=== PATIENT | male | born 1950 | race Caucasian/White ===

== ENCOUNTER 2018-01-31 22:22 | Outpatient (CLI) | payer MEDICARE, OTHER | END 2018-01-31 22:23 | disposition critical access hospital (66) | LOC: EMS 22:22 | PROVIDERS: ATTEND Surgery | DX: M54.5 Low back pain (principal) | CPT/HCPCS: A0425; A0429 ==

== ENCOUNTER 2018-01-31 22:58 | Observation (INO) | payer MEDICARE, OTHER ==
[2018-01-31] MEDS ORDERED: KETOROLAC 15 MG/ML VIAL IVP STA (23:08)
[2018-01-31] MEDS ORDERED: DEXAMETHASONE 10 MG/ML VIAL IVP STA (23:08)
--- NOTE | 2018-01-31 23:10 | ED Physician Documentation ---
PD HPI BACK PAIN - Stated complaint Stated Complaint: BACK PAIN - History obtained from History obtained from: Patient, Family, EMS - History of Present Illness Timing - onset: Chronic Timing - duration: Years (worse for past few weeks) Timing - details: Gradual onset Pain level max: 9 Pain level now: 9 Location: Lower Quality: Pain, Similar to prior episodes Associated symptoms: Weakness (RLE), Numbness (new numbness in the R foot, unable to walk on the R leg. using a wheelchair at home). No: Fever Improves with: Rest Worsened by: Movement Contributing factors: Other (no trauma) Similar symptoms before: Diagnosis (sciatica) [facility], getting worse, pain not controlled) Review of Systems Ten Systems: 10 systems reviewed and negative Constitutional: denies: Fever, Chills Cardiac: denies: Chest pain / pressure Respiratory: denies: Cough GI: denies: Abdominal Pain, Nausea, Vomiting, Diarrhea : denies: Dysuria, Frequency, Hesitancy, Incontinent Skin: denies: Rash PD PAST MEDICAL HISTORY - Past Medical History Cardiovascular: Hypertension Respiratory: None Endocrine/Autoimmune: None GI: GERD : None HEENT: None Psych: Anxiety Musculoskeletal: Chronic back pain Derm: None - Past Surgical History Past Surgical History: Yes - Present Medications Home Medications: Ambulatory Orders Medication Instructions Recorded Confirmed Naproxen [Aleve] 500 mg PO BIDAC 02/13/13 02/01/18 Lisinopril [Zestril] 10 mg PO DAILY 02/25/13 02/01/18 Alprazolam [Alprazolam Xr] 1 tab PO BID PRN 02/01/18 02/01/18 Carbidopa/Levodopa 1 tab PO QID 02/01/18 02/01/18 [Carbidopa-Levodopa 25-100 Tab] Oxycodone HCl 1 tab PO Q4HR PRN 02/01/18 02/01/18 - Allergies Allergies/Adverse Reactions: Allergies Allergy/AdvReac Type Severity Reaction Status Date / Time No Known Drug Allergies Allergy Verified 01/31/18 23:14 - Social History Does the pt smoke?: No Smoking Status: Never smoker Does the pt drink ETOH?: No Does the pt have substance abuse?: No - Immunizations Immunizations are current?: Yes - POLST Patient has POLST: No PD ED PE NORMAL - Vitals Vital signs reviewed: Yes - General General: Alert and oriented X 3, No acute distress - HEENT HEENT: Moist mucous membranes - Neck Neck: Supple, no meningeal sign - Cardiac Cardiac: RRR, Strong equal pulses - Respiratory Respiratory: No respiratory distress, Clear bilaterally - Abdomen Abdomen: Soft, Non tender, Non distended - Back Back: Other (TTP L4-5, upper sacrum.) - Derm Derm: Warm and dry - Extremities Extremities: No edema - Neuro Neuro: Alert and oriented X 3, Other (diminished sensation over the R foot and ankle. improves going up the leg. no response to babinski. 1+ ankle reflex, 1+ patellar reflex. Normal rectal tone. no saddle anesthesia.) Results - Vitals Vitals: Vital Signs - 24 hr 01/31/18 02/01/18 02/01/18 23:05 00:32 02:00 Temperature 36.3 C L Heart Rate 60 52 L 57 L Respiratory 18 16 18 Rate Blood Pressure 146/95 H 141/83 H 150/94 H O2 Saturation 97 94 97 02/01/18 02/01/18 02:34 02:50 Temperature 36.4 C L Heart Rate 62 60 Respiratory 18 18 Rate Blood Pressure 150/94 H 150/94 H O2 Saturation 97 96 Oxygen O2 Source [] Room air O2 Source Room air - Rads (name of study) L spine xray Radiology: Prelim report reviewed, EMP read contemporaneously, See rad report (No evidence of acute fracture or dislocation. There is grade 1 anterolisthesis of L4 on L5. There is moderate multilevel degenerative disease. ) PD MEDICAL DECISION MAKING - ED course Complexity details: reviewed results, re-evaluated patient, considered differential, d/w patient, d/w family, d/w virtualization consultant ED course: 213 - d/w Jaison GALLO at [place] and there are no beds available for transfer. 67-year-old male who presents to the emergency department with what sounds like worsening sciatica and possible nerve root compression causing numbness in the right foot. Unable to ambulate even with a walker and assistance here. Pain improved with steroids and Toradol. He is still having significant pain when standing or sitting however. Postvoid residual of 84. Normal rectal exam. No saddle anesthesia. Given his new neurological findings, I think that an MRI is reasonable as he is unable to ambulate. MRI is not available tonight therefore discussed the case with the hospitalist, Dr. Wynne who will come and evaluate the patient. For observation for MRI and PT eval. Patient is accepted by Dr. wynne and will be placed in observation. This document was made in part using voice recognition software. While efforts are made to proofread this document, sound alike and grammatical errors may occur. Departure - Departure Disposition: ED Place in Observation Clinical Impression: Numbness of right foot Sciatica Qualifiers: Laterality: right Qualified Code(s): M54.31 - Sciatica, right side Condition: Stable
--- NOTE | 2018-02-01 00:17 | XRAY Report ---
Reason: low back pain Procedure Date: 01/31/2018 Accession Number: [id number] / [id number] Procedure: XR - Lumbar Spine 2 View CPT Code: FULL RESULT: EXAM: LUMBOSACRAL SPINE RADIOGRAPHY EXAM DATE: 01/31/2018 11:58 PM. CLINICAL HISTORY: Low back pain. COMPARISONS: None. TECHNIQUE: 2 views. FINDINGS: Alignment: 0.3 cm anterolisthesis of L4 on L5 is probably degenerative. Bones: No fractures or focal bony lesions. Disks/Facets: There is mild multilevel disk space narrowing. There is marginal osteophyte formation. There is facet arthrosis. Sacroiliac Joints: Unremarkable. Soft Tissues: No unexpected findings. IMPRESSION: 1. No evidence of acute fracture or dislocation. 2. There is grade 1 anterolisthesis of L4 on L5. 3. There is moderate multilevel degenerative disease. RADIA
[2018-02-01] MEDS ORDERED: MORPHINE 2 MG/ML CARPUJECT IVP STA (02:16)
[2018-02-01] MEDS ORDERED: ONDANSETRON 4 MG/2 ML VIAL IVP PRN (02:52)
[2018-02-01] MEDS ORDERED: ACETAMINOPHEN 325 MG TABLET PO PRN (02:52)
[2018-02-01] MEDS ORDERED: ZOLPIDEM 5 MG TABLET PO PRN (02:52)
[2018-02-01] MEDS ORDERED: oxyCODONE 5 MG TABLET PO PRN (02:52)
[2018-02-01] MEDS ORDERED: ALPRAZOLAM PO PRN (02:56)
[2018-02-01 03:07] LABS: BASOPHILS % (AUTO) 0.5 %; EOSINOPHILS % (AUTO) 0.2 %; HGB - HEMOGLOBIN 14.1 g/dL (14.0-18.0); LYMPHOCYTES # (AUTO) 0.8 10^3/uL (1.5-3.5); LYMPHOCYTES % (AUTO) 10.5 %; MEAN CORPUSCULAR HEMOGLOBIN 34.6 pg (27.0-31.0); MEAN CORPUSCULAR HGB CONC 34.8 g/dL (32.0-36.0); MEAN CORPUSCULAR VOLUME 99.5 fL (80.0-94.0); MEAN PLATELET VOLUME 7.8 fL (7.4-11.4); MONOCYTES # (AUTO) 0.1 10^3/uL (0.0-1.0); MONOCYTES % (AUTO) 1.6 %; NEUTROPHILS # (AUTO) 6.8 10^3/uL (1.5-6.6); NEUTROPHILS % (AUTO) 87.2 %; PLT - PLATELET COUNT 265 10^3/uL (130-450); RED BLOOD COUNT 4.09 10^6/uL (4.70-6.10); WHITE BLOOD COUNT 7.8 x10^3/uL (4.8-10.8)
[2018-02-01 03:13] LABS: CALCIUM 8.7 mg/dL (8.5-10.3); CREATININE 1.3 mg/dL (0.6-1.2)
[2018-02-01] MEDS: CARBIDOPA/LEVODOPA 25 MG/100 MG TABLET PO SCH ×3 (03:41→14:25)
[2018-02-01] MEDS: SODIUM CHLORIDE FLUSH 0.9% 10 ML SYRINGE IVP PRN ×3 (03:42→10:47)
[2018-02-01] MEDS: PANTOPRAZOLE 40 MG TABLET PO SCH ×2 (03:42→04:50)
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
[2018-02-01] MEDS: SODIUM CHLORIDE FLUSH 0.9% 10 ML SYRINGE IVP SCH ×2 (04:46→08:24)
[2018-02-01] MEDS: MORPHINE 2 MG/ML CARPUJECT IVP PRN ×2 (04:47→10:51)
[2018-02-01] MEDS: KETOROLAC 15 MG/ML VIAL IVP SCH ×2 (06:08→14:24)
[2018-02-01] MEDS ORDERED: LIDOCAINE PATCH 5% TOP PRN (06:57)
[2018-02-01] MEDS ORDERED: POLYETHYLENE GLYCOL 3350 17 GM PACKET PO SCH (09:00)
[2018-02-01] MEDS ORDERED: LISINOPRIL 5 MG TABLET PO SCH (09:00)
[2018-02-01] MEDS ORDERED: predniSONE 20 MG TABLET PO SCH (09:00)
[2018-02-01] MEDS ORDERED: HEPARIN 5,000 UNIT/ML VIAL SUBQ SCH (09:00)
[2018-02-01] MEDS ORDERED: LORazepam 2 MG/ML VIAL IVP SCH (11:00)
[2018-02-01] MEDS ORDERED: GADOBUTROL 10 MMOL/10 ML VIAL ONE (11:22)
[2018-02-01] MEDS ORDERED: GADOBUTROL 10 MMOL/10 ML VIAL IVP ONE (13:38)
--- NOTE | 2018-02-01 13:56 | MRI Report ---
Reason: Back pain Procedure Date: 02/01/2018 Accession Number: [id number] / [id number] Procedure: MRI - Thoracic Spine W/O CPT Code: FULL RESULT: EXAM: MRI THORACIC SPINE WITHOUT CONTRAST EXAM DATE: 02/01/2018 11:34 AM. CLINICAL HISTORY: Back pain. COMPARISONS: X-ray thoracic spine two views 02/21/2010. MRI of the lumbar spine 02/01/2018. TECHNIQUE: Multiplanar, multisequence T1-weighted and fluid-sensitive sequences of the thoracic spine from C7 to L1 without contrast. Other: None. FINDINGS: Neurologic Structures: Mild slit-like CSF prominence is seen centrally within the mid thoracic spinal cord centered at T7. This extends from T5-T6 through T8-T9, measuring up to 2 mm in diameter. No adjacent parenchymal signal abnormality is seen within the thoracic spinal cord. Otherwise, the thoracic spinal cord is unremarkable. The spinal canal is adequate. Alignment: No scoliosis or spondylolisthesis. Bone Marrow: No gross fractures or bone lesion. No bone marrow replacement. Disk Levels/Facets: C6-C7: Mild loss of disk space height is seen. Mild broad-based dorsal subligamentous disk protrusion is seen. Hypertrophic degenerative uncovertebral change is noted. Mild canal stenosis. Moderate to marked bilateral foraminal stenosis. C7-T1: Unremarkable. Note is made of osseous fusion of right facet joint. T1-T2: Unremarkable. T2-T3: Unremarkable. T3-T4: Unremarkable. T4-T5: Unremarkable. T5-T6: Unremarkable. Minimal loss of disk space height. T6-T7: Unremarkable. T7-T8: Unremarkable. T8-T9: Unremarkable. Mild right anterolateral osteophyte formation. T9-T10: Unremarkable. Mild right anterolateral osteophyte formation. T10-T11: Unremarkable. Mild left anterolateral osteophyte formation. T11-T12: Unremarkable. Mild left anterolateral osteophyte formation. T12-L1: Unremarkable. Mild anterior osteophyte formation. Musculature: Normal. No edema or fatty atrophy. Other: The visualized lungs, mediastinum, and abdominal cavity are unremarkable. IMPRESSION: 1. Linear cystic prominence seen centrally in the mid thoracic spinal cord centered at T7. 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 No associated parenchymal signal abnormality is appreciated. 2. No significant thoracic spondylosis. No canal or foraminal stenosis. 3. C6-C7: Degenerative disk and uncovertebral change. Mild canal stenosis. Bilateral moderate to marked foraminal stenosis. RADIA
--- NOTE | 2018-02-01 14:26 | MRI Report ---
Reason: LE weakness Procedure Date: 02/01/2018 Accession Number: [id number] / [id number] Procedure: MRI - Lumbar Spine W/ CPT Code: FULL RESULT: EXAM: MRI LUMBAR SPINE WITHOUT AND WITH CONTRAST EXAM DATE: 02/01/2018 12:24 PM. CLINICAL HISTORY: Lower extremity weakness. Low back pain. COMPARISONS: Lumbar spine 01/28/2013 5:17 PM. Lumbar spine plain films 01/31/2018. MRI of the thoracic spine 02/01/2018. TECHNIQUE: Multiplanar, multisequence T1-weighted and fluid-sensitive sequences of the lumbar spine from T12 to S1 before and after administration of intravenous contrast. Other: None. IV contrast: 10 mL Gadavist. FINDINGS: Neurologic Structures: The conus terminates at T12-L1. The conus medullaris is unremarkable. Crowding of cauda equina nerve roots is seen in the thecal sac predominating at L3-L4 and to a lesser extent L2-L3. Lumbar spinal canal is congenitally shallow. Alignment: There is 17 degrees levorotatory scoliosis centered at L4. Mild, 5 mm, spondylolisthesis is seen at L4-L5. Bone Marrow: Five [id number] lumbar vertebral bodies are assumed. No gross fractures or bone lesions. No bone marrow replacement or abnormal enhancement. Mild bone marrow edema is seen involving right L3-L4 facet processes extending into the adjacent right L3 and L4 pedicles. Disk Levels/Facets: T11-T12: Small endplate Schmorl's node formation. Minimal dorsal disk bulge. No stenosis. T12-L1: Unremarkable. L1-L2: Minimal dorsal and mild lateral circumferential disk bulge. No stenosis. L2-L3: Mild degenerative facet change. Mild loss of disk space height. Vacuum cleft phenomenon and T2 hypointense disk signal greatest peripherally to the left. Diskogenic endplate irregularity and signal abnormality with Modic type I change laterally to the left. Mild circumferential disk bulge is seen. Asymmetric left dorsolateral, foraminal, and lateral disk protrusion is seen. Focal left medial foraminal disk extrusion is seen. Moderate canal stenosis. Moderate left foraminal stenosis. L3-L4: Moderate right-sided and mild left-sided degenerative facet change is seen. Vacuum cleft phenomenon and T2 hypointense disk signal is seen. Diskogenic endplate irregularity and signal abnormality is seen laterally to the right. Mild circumferential disk bulge is seen. Right dorsolateral inferior disk herniation is seen. Dorsal epidural fat soft tissue structure is seen with enhancement, which is new. Effacement of the thecal sac is noted with marked canal stenosis. Marked right lateral recess stenosis is present. Moderate right foraminal stenosis. L4-L5: Postoperative change from bilateral laminectomy and partial facetectomy is seen. Partial peripheral fusion of the facet joints is noted. Mild spondylolisthesis is seen. Loss of disk space height is present. Diskogenic endplate signal abnormality with Modic type II appearance is seen laterally to the right. No stenosis. L5-S1: Moderate degenerative facet change is seen, greater on the right. Mild loss of disk space height and T2 hypointense to signal is seen. Mild circumferential disk bulge. No stenosis. Spinal Canal: There is a heterogeneous dorsal epidural focus of signal abnormality seen at the L3-L4 level, replacing the previously noted dorsal epidural fat. This demonstrates isointense T1 and hypointense T2 signal. Heterogeneous hyperintense STIR signal and enhancement is seen. This measures approximately 22 x 12 x 11 mm in size. Musculature: Fatty atrophy with edema is seen involving right posterior paraspinous musculature in the lower lumbar spine. No paraspinous fluid collection is seen. Other: The visualized retroperitoneum is unremarkable. IMPRESSION: 1. Interval postoperative change from dorsal decompression at L4-L5. 2. L3-L4: Interval development of heterogeneous enhancing focus in the dorsal epidural space measuring 22 x 12 x 11 mm. Superimposed spondylosis with degenerative disk and facet change is present as well. Marked canal stenosis. Marked right lateral recess stenosis. Moderate right foraminal stenosis. 3. L2-L3: Spondylosis is present. Degenerative disk change with asymmetric left dorsolateral and lateral disk protrusion. Moderate canal stenosis. Moderate left foraminal stenosis. 4. Spondylosis in the remainder of the lumbar spine as noted above. Levorotatory scoliosis is seen centered at L4. Mild spondylolisthesis is seen at L4-L5. Critical result: Findings are discussed with referring treating physician on 02/01/2018 at 1412 hrs. Comment: The following findings are so common in adults without low back pain that while we report their presence, they must be interpreted with caution and in the context of the clinical situation. (Reference Greciak et al, Spine 2001) Prevalence of findings in patients without low back pain: Disk degeneration (any evidence): 92% Disk desiccation/T2 signal loss: 83% Disk height loss: 56% Disk bulge: 64% Disk protrusion: 32% Annular tear/high intensity zone: 38% RADIA
--- NOTE | 2018-02-01 15:06 | Discharge Plan ---
Discharge Plan Disposition: Home, Self Care Condition: Stable Prescriptions: HYDROmorphone [Dilaudid] 2 mg PO Q4H #45 tablet Prednisone 10 mg PO DAILY #1 tab.ds.pk Diet: Regular Activity Restrictions: Activity as Tolerated Shower Restrictions: No Driving Restrictions: No Additional Instructions or Follow Up instructions: You were placed into the hospital for observation overnight because you were developing a gradually worsening right leg weakness and pain. You were able to lift the leg up against gravity, but if we push on it, the leg goes out from underneath you. You have had previous back surgery at [place]. This was years ago. But this has only been going on for 3 weeks. You have no bowel or bladder problems, and we cannot find any other neurological problems from a pinched nerve in the lumbar spine. The MRI of your back shows you to have a probable fluid collection from something called a synovial cyst that is scar tissue from your previous surgery. I have already spoken to Dr. Carlos Colmenares at [facility]. He is willing to see you in the next 1-2 weeks and evaluate you for possible surgery. He may find that he can manage this without surgery, but he needs to see you first before he can make that decision. You will go home on a tapering dose of steroids. I have also started you on a new pain pill called Dilaudid. All pain medicine can give you severe constipation so make sure you drink plenty of water, add a little bit of fiber to your diet, and that you take a stool softener like colace every day. In the meantime, you need to reestablish yourself with a new primary care provider. I believe you are going to seek the help of Dr. Hong Briseno. If you have any questions, I have given you my card with my phone number. Call me on Sunday if there is a problem with getting into see Dr. Colmenares. No Smoking: If you smoke, Please STOP! Call for help. Follow-up with: CARLOS COLMENARES MD [Physician No Access] - Hong Briseno MD [Provider Admit Priv/Credential] -
[2018-02-01 15:31] VITALS: BP 149/95
--- NOTE | 2018-02-01 16:19 | DISCHARGE SUMMARY ---
Discharge Summary Admit Date: 02/01/18 Discharge Date: 02/01/18 Discharging Provider: Areli Naylor MD Primary Care Provider: Hong Briseno MD and [facility] Code Status: Attempt Resuscitation Condition at Discharge: Fair Discharge Disposition: 01 Home, Self Care - DIAGNOSES Discharge Diagnoses with Status of Each Condition: 1. Right leg radiculopathy, with leg weakness times 3 weeks 2. History of lumbar decompression laminectomy 3. Hypertension 4. Parkinson's disease - HPI History of Present Illness: He is a 67-year-old white male who has a history of degenerative disc disease and had a lumbar decompression surgery about 4-4 years ago. He also has Parkinson's disease but the disease is very well controlled and he says that there is times when he does not even feel that he has a problem. About 2-3 weeks ago he developed some lower back pain. He is used to some back stiffness. But this was a little bit more uncomfortable than most. The back pain then started radiating down the right leg. He was seen by his primary care provider at [facility] January 31 and had treatment for sciatica which was given oxycodone and to "take it easy". But the pain is continue to progress and the pain is severe enough that his leg is getting weak and is getting more more difficult to move the right leg. He is also having increasing right leg numbness. He denies any bowel or bladder incontinence. He was seen in the emergency room. He can lift his leg against gravity, compliant and dorsiflex. Rectal tone is intact. Any had no urinary incontinence. He was placed under observation because of worsening neurological deficit and to get pain control. - CONSULTS | PROCEDURES Procedures: MRI LUMBAR SPINE WITHOUT AND WITH CONTRAST EXAM DATE: 02/01/2018 12:24 PM. CLINICAL HISTORY: Lower extremity weakness. Low back pain. COMPARISONS: Lumbar spine 01/28/2013 5:17 PM. Lumbar spine plain films 01/31/2018. MRI of the thoracic spine 02/01/2018. TECHNIQUE: Multiplanar, multisequence T1-weighted and fluid-sensitive sequences of the lumbar spine from T12 to S1 before and after administration of intravenous contrast. Other: None. IV contrast: 10 mL Gadavist. FINDINGS: Neurologic Structures: The conus terminates at T12-L1. The conus medullaris is unremarkable. Crowding of cauda equina nerve roots is seen in the thecal sac predominating at L3-L4 and to a lesser extent L2-L3. Lumbar spinal canal is congenitally shallow. Alignment: There is 17 degrees levorotatory scoliosis centered at L4. Mild, 5 mm, spondylolisthesis is seen at L4-L5. Bone Marrow: Five eie-[id number] lumbar vertebral bodies are assumed. No gross fractures or bone lesions. No bone marrow replacement or abnormal enhancement. Mild bone marrow edema is seen involving right L3-L4 facet processes extending into the adjacent right L3 and L4 pedicles. Disk Levels/Facets: T11-T12: Small endplate Schmorl's node formation. Minimal dorsal disk bulge. No stenosis. T12-L1: Unremarkable. L1-L2: Minimal dorsal and mild lateral circumferential disk bulge. No stenosis. L2-L3: Mild degenerative facet change. Mild loss of disk space height. Vacuum cleft phenomenon and T2 hypointense disk signal greatest peripherally to the left. Diskogenic endplate irregularity and signal abnormality with Modic type I change laterally to the left. Mild circumferential disk bulge is seen. Asymmetric left dorsolateral, foraminal, and lateral disk protrusion is seen. Focal left medial foraminal disk extrusion is seen. Moderate canal stenosis. Moderate left foraminal stenosis. L3-L4: Moderate right-sided and mild left-sided degenerative facet change is seen. Vacuum cleft phenomenon and T2 hypointense disk signal is seen. Diskogenic endplate irregularity and signal abnormality is seen laterally to the right. Mild circumferential disk bulge is seen. Right dorsolateral inferior disk herniation is seen. Dorsal epidural fat soft tissue structure is seen with enhancement, which is new. Effacement of the thecal sac is noted with marked canal stenosis. Marked right lateral recess stenosis is present. Moderate right foraminal stenosis. L4-L5: Postoperative change from bilateral laminectomy and partial facetectomy is seen. Partial peripheral fusion of the facet joints is noted. Mild spondylolisthesis is seen. Loss of disk space height is present. Diskogenic endplate signal abnormality with Modic type II appearance is seen laterally to the right. No stenosis. L5-S1: Moderate degenerative facet change is seen, greater on the right. Mild loss of disk space height and T2 hypointense to signal is seen. Mild circumferential disk bulge. No stenosis. Spinal Canal: There is a heterogeneous dorsal epidural focus of signal abnormality seen at the L3-L4 level, replacing the previously noted dorsal epidural fat. This demonstrates isointense T1 and hypointense T2 signal. Heterogeneous hyperintense STIR signal and enhancement is seen. This measures approximately 22 x 12 x 11 mm in size. Musculature: Fatty atrophy with edema is seen involving right posterior paraspinous musculature in the lower lumbar spine. No paraspinous fluid collection is seen. Other: The visualized retroperitoneum is unremarkable. IMPRESSION: 1. Interval postoperative change from dorsal decompression at L4-L5. 2. L3-L4: Interval development of heterogeneous enhancing focus in the dorsal epidural space measuring 22 x 12 x 11 mm. Superimposed spondylosis with degenerative disk and facet change is present as well. Marked canal stenosis. Marked right lateral recess stenosis. Moderate right foraminal stenosis. 3. L2-L3: Spondylosis is present. Degenerative disk change with asymmetric left dorsolateral and lateral disk protrusion. Moderate canal stenosis. Moderate left foraminal stenosis. 4. Spondylosis in the remainder of the lumbar spine as noted above. Levorotatory scoliosis is seen centered at L4. Mild spondylolisthesis is seen at L4-L5. Critical result: Findings are discussed with referring treating physician on 02/01/2018 at 1412 hrs. Comment: The following findings are so common in adults without low back pain that while we report their presence, they must be interpreted with caution and in the context of the clinical situation. (Reference Jarvik et al, Spine 2001) Prevalence of findings in patients without low back pain: Disk degeneration (any evidence): 92% Disk desiccation/T2 signal loss: 83% Disk height loss: 56% Disk bulge: 64% Disk protrusion: 32% Annular tear/high intensity zone: 38% MRI THORACIC SPINE WITHOUT CONTRAST EXAM DATE: 02/01/2018 11:34 AM. CLINICAL HISTORY: Back pain. COMPARISONS: X-ray thoracic spine two views 02/21/2010. MRI of the lumbar spine 02/01/2018. TECHNIQUE: Multiplanar, multisequence T1-weighted and fluid-sensitive sequences of the thoracic spine from C7 to L1 without contrast. Other: None. FINDINGS: Neurologic Structures: Mild slit-like CSF prominence is seen centrally within the mid thoracic spinal cord centered at T7. This extends from T5-T6 through T8-T9, measuring up to 2 mm in diameter. No adjacent parenchymal signal abnormality is seen within the thoracic spinal cord. Otherwise, the thoracic spinal cord is unremarkable. The spinal canal is adequate. Alignment: No scoliosis or spondylolisthesis. Bone Marrow: No gross fractures or bone lesion. No bone marrow replacement. Disk Levels/Facets: C6-C7: Mild loss of disk space height is seen. Mild broad-based dorsal subligamentous disk protrusion is seen. Hypertrophic degenerative uncovertebral change is noted. Mild canal stenosis. Moderate to marked bilateral foraminal stenosis. C7-T1: Unremarkable. Note is made of osseous fusion of right facet joint. T1-T2: Unremarkable. T2-T3: Unremarkable. T3-T4: Unremarkable. T4-T5: Unremarkable. T5-T6: Unremarkable. Minimal loss of disk space height. T6-T7: Unremarkable. T7-T8: Unremarkable. T8-T9: Unremarkable. Mild right anterolateral osteophyte formation. T9-T10: Unremarkable. Mild right anterolateral osteophyte formation. T10-T11: Unremarkable. Mild left anterolateral osteophyte formation. T11-T12: Unremarkable. Mild left anterolateral osteophyte formation. T12-L1: Unremarkable. Mild anterior osteophyte formation. Musculature: Normal. No edema or fatty atrophy. Other: The visualized lungs, mediastinum, and abdominal cavity are unremarkable. IMPRESSION: 1. Linear cystic prominence seen centrally in the mid thoracic spinal cord centered at T7. 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 No associated parenchymal signal abnormality is appreciated. 2. No significant thoracic spondylosis. No canal or foraminal stenosis. 3. C6-C7: Degenerative disk and uncovertebral change. Mild canal stenosis. Bilateral moderate to marked foraminal stenosis. - HOSPITAL COURSE Hospital Course: He was given steroids, with a tapered program. Medications for pain were Toradol, Lidoderm patch, and morphine. He says that he was getting a lot more relief with the morphine that he was with the oxycodone. The oxycodone he got in his PCP clinic and here with us really was not helping. MRI was done and shows him to have a fluid collection in the dorsal epidural area of the lumbar spine. I discussed the case with Dr. Colmenares, who is the neurosurgeon expansion joint finisher for [facility] cranial, spine, and joint clinic. Dr. Colmenares feels it is probably a synovial cyst with growth. Because the patient is white cell count and sed rate are normal we do not think this is infection. Dr. Goff his options were to transfer to [place] emergently if I felt the neurological deficit was severe. Or to temporize and then transfer in the next few days. Or to temporize, get good pain control, and he would see the patient in the outpatient setting in the next 1-2 weeks. Of these options, the patient wants to go home. He is willing to follow-up with Dr. Colmenares in the next 1-2 weeks. [facility] He thinks he is going to go back to seeing Dr. Hong Rush as his primary care simi barfield. He is being discharged with a tapering dose of prednisone. Dilaudid. I have given him my card. If he has any difficulty getting his appointment in the next week to give me a call on Sunday (today is Sunday) - ALLERGIES Allergies/Adverse Reactions: Allergies Allergy/AdvReac Type Severity Reaction Status Date / Time No Known Drug Allergies Allergy Verified 01/31/18 23:14 - MEDICATIONS Home Medications: Ambulatory Orders Medication Instructions Recorded Confirmed Naproxen [Naprosyn] 500 mg PO BIDAC 02/13/13 02/01/18 Lisinopril [Zestril] 10 mg PO DAILY 02/25/13 02/01/18 Carbidopa/Levodopa 1 tab PO QID 02/01/18 02/01/18 [Carbidopa-Levodopa 25-100 Tab] HYDROmorphone [Dilaudid] 2 mg PO Q4H #45 tablet 02/01/18 Prednisone 10 mg PO DAILY #1 tab.ds.pk 02/01/18 - PHYSICAL EXAM AT DISCHARGE General Appearance: positive: No acute distress, Alert Eyes Bilateral: positive: PERRL ENT: positive: Pharynx nml Neck: positive: No JVD. negative: Stiff neck, Carotid bruit Respiratory: positive: Chest non-tender. negative: Wheezes, Rales, Rhonchi Cardiovascular: positive: Regular rate & rhythm. negative: Gallop/S4, Friction rub Peripheral Pulses: positive: 1+ Abdomen: positive: Non-tender, No organomegaly, Nml bowel sounds, No distention Skin: positive: Warm, Dry Neurologic/Psychiatric: positive: Oriented x3, CN's nml (2-12), Other (He does have the bradycardia kinetic facial movement of a Parkinson's patient). negative: Motor nml (Very minimal cogwheel rigidity. Very still at rest. No resting tremor.He can lift his right leg above the bed. But it immediately goes down with even minimal pressure on my part. Plantar dorsiflexion strength testing is also in about 4-/5. When he stands to walk he is dragging his right foot. 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
== END 2018-02-01 15:45 | disposition home or self-care (01) ==
LOC: EDUNIT# → ED 22:58 → MS2 02-01 02:52
PROVIDERS: ADMIT Internal Medicine; ATTEND Specialist
DX: M51.16 Intervertebral disc disorders with radiculopathy, lumbar region (principal); M47.26 Other spondylosis with radiculopathy, lumbar region; M47.27 Other spondylosis with radiculopathy, lumbosacral region; M43.16 Spondylolisthesis, lumbar region; M48.061 Spinal stenosis, lumbar region without neurogenic claudication; M50.323 Other cervical disc degeneration at C6-C7 level; R93.7 Abnormal findings on diagnostic imaging of other parts of musculoskeletal system; I10 Essential (primary) hypertension; G20 Parkinson's disease; M21.962 Unspecified acquired deformity of left lower leg; S91.302S Unspecified open wound, left foot, sequela; F41.9 Anxiety disorder, unspecified; F32.9 Major depressive disorder, single episode, unspecified
CPT/HCPCS: 36415; 72100; 72146; 72149; 80048; 85025; 85651; 96374; 96375; 96376; 99284; A9270; A9585; G0378; J2060; J7512; 99285

== ENCOUNTER 2018-02-06 17:37 | Observation (INO) | payer MEDICARE, OTHER ==
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
[2018-02-06] MEDS ORDERED: HYDROmorphone 1 MG/ML CARPUJECT IVP STA (23:05)
[2018-02-06] MEDS ORDERED: DEXAMETHASONE 10 MG/ML VIAL IVP STA (23:06)
[2018-02-06 23:28] LABS: BASOPHILS # (AUTO) 0.1 10^3/uL (0.0-0.1); BASOPHILS % (AUTO) 1.3 %; EOSINOPHILS # (AUTO) 0.1 10^3/uL (0.0-0.7); EOSINOPHILS % (AUTO) 1.3 %; HGB - HEMOGLOBIN 15.6 g/dL (14.0-18.0); LYMPHOCYTES % (AUTO) 10.9 %; MEAN CORPUSCULAR HGB CONC 34.3 g/dL (32.0-36.0); MEAN CORPUSCULAR VOLUME 99.4 fL (80.0-94.0); MEAN PLATELET VOLUME 7.7 fL (7.4-11.4); MONOCYTES # (AUTO) 0.6 10^3/uL (0.0-1.0); MONOCYTES % (AUTO) 6.5 %; NEUTROPHILS # (AUTO) 7.5 10^3/uL (1.5-6.6); PLT - PLATELET COUNT 278 10^3/uL (130-450); RED BLOOD COUNT 4.59 10^6/uL (4.70-6.10); RED CELL DISTRIBUTION WIDTH 14.1 % (12.0-15.0); WHITE BLOOD COUNT 9.4 x10^3/uL (4.8-10.8)
[2018-02-06] MEDS ORDERED: ACETAMINOPHEN 325 MG TABLET PO PRN (23:33)
[2018-02-06] MEDS ORDERED: PROCHLORPERAZINE 10 MG/2 ML VIAL IVP PRN (23:33)
[2018-02-06] MEDS ORDERED: TEMAZEPAM 15 MG CAPSULE PO PRN (23:33)
[2018-02-06 23:41] LABS: ALBUMIN 4.5 g/dL (3.2-5.5); ALBUMIN/GLOBULIN RATIO 1.3 (1.0-2.2); BILIRUBIN,TOTAL 0.5 mg/dL (0.2-1.0); CREATININE 1.2 mg/dL (0.6-1.2); TOTAL PROTEIN 7.9 g/dL (6.7-8.2)
[2018-02-07] MEDS: CARBIDOPA/LEVODOPA 25 MG/100 MG TABLET PO SCH ×2 (00:44→08:13)
[2018-02-07] MEDS ORDERED: SODIUM CHLORIDE FLUSH 0.9% 10 ML SYRINGE IVP SCH (01:00)
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
[2018-02-07] MEDS ORDERED: PANTOPRAZOLE 40 MG TABLET PO SCH (07:00)
[2018-02-07] MEDS: HYDROmorphone 0.5 MG/0.5 ML SYRINGE IVP PRN ×2 (07:07→08:27)
[2018-02-07] MEDS: SODIUM CHLORIDE FLUSH 0.9% 10 ML SYRINGE IVP PRN ×2 (07:08→08:28)
[2018-02-07 07:32] VITALS: BP 135/90
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
[2018-02-07] MEDS ORDERED: ENOXAPARIN 40 MG/0.4 ML SYRINGE SUBQ SCH (09:00)
[2018-02-07] MEDS ORDERED: DOCUSATE SODIUM 250 MG CAPSULE PO SCH (09:00)
[2018-02-07] MEDS ORDERED: POLYETHYLENE GLYCOL 3350 17 GM PACKET PO SCH (09:00)
[2018-02-07] MEDS ORDERED: SENNA 8.6 MG TABLET PO SCH (09:00)
[2018-02-07] MEDS ORDERED: LISINOPRIL 5 MG TABLET PO SCH (09:00)
== END 2018-02-07 08:30 | disposition short-term general hospital (02) ==
LOC: ED 17:37 → OBS 23:33
PROVIDERS: ADMIT Internal Medicine; ATTEND Internal Medicine
DX: G95.0 Syringomyelia and syringobulbia (principal); G20 Parkinson's disease; I10 Essential (primary) hypertension; E66.9 Obesity, unspecified; M51.36 Other intervertebral disc degeneration, lumbar region; Z68.28 Body mass index [BMI] 28.0-28.9, adult; Z99.3 Dependence on wheelchair
CPT/HCPCS: 36415; 80053; 83690; 85025; 96372; 96374; 96375; 96376; 99283; 99284; A9270; G0378; J1170; J1650

== ENCOUNTER 2018-02-07 08:43 | Outpatient (CLI) | payer MEDICARE | END 2018-02-07 08:44 | disposition short-term general hospital (02) | LOC: EMS 08:43 | PROVIDERS: ATTEND Surgery | DX: M53.9 Dorsopathy, unspecified (principal) | CPT/HCPCS: A0425; A0428 ==

== ENCOUNTER 2018-04-15 22:15 | Emergency (ER) | payer MEDICARE ==
[2018-04-15] MEDS ORDERED: cloNIDine 0.1 MG TABLET ONE (23:33)
[2018-04-16 02:35] LABS: BASOPHILS # (AUTO) 0.1 10^3/uL (0.0-0.1); EOSINOPHILS # (AUTO) 0.1 10^3/uL (0.0-0.7); EOSINOPHILS % (AUTO) 1.1 %; HGB - HEMOGLOBIN 13.7 g/dL (14.0-18.0); LYMPHOCYTES # (AUTO) 1.6 10^3/uL (1.5-3.5); LYMPHOCYTES % (AUTO) 20.6 %; MEAN CORPUSCULAR HEMOGLOBIN 33.5 pg (27.0-31.0); MEAN CORPUSCULAR HGB CONC 34.5 g/dL (32.0-36.0); MEAN CORPUSCULAR VOLUME 97.2 fL (80.0-94.0); MEAN PLATELET VOLUME 7.9 fL (7.4-11.4); MONOCYTES # (AUTO) 0.7 10^3/uL (0.0-1.0); MONOCYTES % (AUTO) 9.1 %; NEUTROPHILS # (AUTO) 5.3 10^3/uL (1.5-6.6); NEUTROPHILS % (AUTO) 68.2 %; PLT - PLATELET COUNT 267 10^3/uL (130-450); RED CELL DISTRIBUTION WIDTH 13.4 % (12.0-15.0); WHITE BLOOD COUNT 7.8 x10^3/uL (4.8-10.8)
[2018-04-16 02:36] LABS: ALBUMIN 3.9 g/dL (3.2-5.5); ALBUMIN/GLOBULIN RATIO 1.4 (1.0-2.2); BILIRUBIN,TOTAL 0.7 mg/dL (0.2-1.0); CALCIUM 8.8 mg/dL (8.5-10.3); CREATININE 1.1 mg/dL (0.6-1.2); TOTAL PROTEIN 6.7 g/dL (6.7-8.2)
--- NOTE | 2018-04-16 02:44 | ED Physician Documentation ---
PD HPI CHEST PAIN - Stated complaint Stated Complaint: SOA,CHEST PAIN,ANXIETY - Chief complaint Chief Complaint: Cardiac - History obtained from History obtained from: Patient - History of Present Illness Timing - onset: How many hours ago (2) Timing - onset during: Rest Timing - duration: Hours (2) Timing - details: Gradual onset Pain level max: 2 Pain level now: 2 Severity Comments: mild Quality: Sharp Location: Left chest Radiation: No: Jaw, Neck, Left upper extremity, Right upper extremity Improved by: Nothing. No: Rest Worsened by: No: Exertion, Inspiration Associated symptoms: Other (mild gradual onset headache). No: Shortness of air, Diaphoresis Review of Systems Constitutional: reports: Reviewed and negative Eyes: reports: Reviewed and negative Ears: reports: Reviewed and negative Nose: reports: Reviewed and negative Throat: reports: Reviewed and negative Cardiac: reports: Reviewed and negative Respiratory: reports: Reviewed and negative GI: reports: Reviewed and negative : reports: Reviewed and negative Skin: reports: Reviewed and negative Musculoskeletal: reports: Reviewed and negative Neurologic: reports: Reviewed and negative Psychiatric: reports: Reviewed and negative Endocrine: reports: Reviewed and negative Immunocompromised: reports: Reviewed and negative PD PAST MEDICAL HISTORY - Past Medical History Past Medical History: Yes Cardiovascular: Hypertension Respiratory: None Neuro: Parkinson's Endocrine/Autoimmune: None GI: GERD : None HEENT: None Psych: Anxiety Musculoskeletal: Chronic back pain Derm: None - Past Surgical History Past Surgical History: Yes - Present Medications Home Medications: Ambulatory Orders Medication Instructions Recorded Confirmed Lisinopril [Zestril] 10 mg PO DAILY 02/25/13 04/16/18 Carbidopa/Levodopa 1 tab PO QID 02/01/18 04/16/18 [Carbidopa-Levodopa 25-100 Tab] HYDROmorphone [Dilaudid] 2 mg PO Q4H #45 tablet 02/01/18 04/16/18 Prednisone 10 mg PO DAILY #1 tab.ds.pk 02/01/18 04/16/18 - Allergies Allergies/Adverse Reactions: Allergies Allergy/AdvReac Type Severity Reaction Status Date / Time No Known Drug Allergies Allergy Verified 04/16/18 01:39 - Social History Does the pt smoke?: No Smoking Status: Never smoker Does the pt drink ETOH?: No Does the pt have substance abuse?: No - Immunizations Immunizations are current?: Yes - POLST Patient has POLST: No PD ED PE NORMAL - Vitals Vital signs reviewed: Yes - General General: Alert and oriented X 3, No acute distress - HEENT HEENT: PERRL - Neck Neck: Supple, no meningeal sign - Cardiac Cardiac: RRR, No murmur - Respiratory Respiratory: Clear bilaterally - Abdomen Abdomen: Normal bowel sounds, Soft, Non tender, Non distended - Derm Derm: Warm and dry - Extremities Extremities: No deformity - Neuro Neuro: Alert and oriented X 3 - Psych Psych: Normal mood, Normal affect Results - Vitals Vitals: Vital Signs - 24 hr 04/15/18 04/15/18 04/16/18 22:25 22:37 02:24 Temperature 36.5 C Heart Rate 65 69 Respiratory 16 15 Rate Blood Pressure 175/96 H 164/112 H Blood Pressure 141/113 H [Left] O2 Saturation 96 96 Oxygen O2 Source [Without Activity] Room air O2 Source Room air - EKG (time done) 2246 Rate: Rate (enter#) (62) Rhythm: NSR [place]: Normal Intervals: Normal [place], QRS normal Ischemia: Normal ST segments. No: T wave inversion - Labs Labs: Laboratory Tests 04/15/18 04/15/18 04/15/18 23:00 23:00 23:00 WBC 7.8 RBC 4.10 L Hgb 13.7 L Hct 39.9 L MCV 97.2 H MCH 33.5 H MCHC 34.5 RDW 13.4 Plt Count 267 MPV 7.9 Neut # (Auto) 5.3 Lymph # (Auto) 1.6 Saline # (Auto) 0.7 Eos # (Auto) 0.1 Baso # (Auto) 0.1 Absolute Nucleated RBC 0.00 Nucleated RBC % 0.0 Sodium 135 Potassium 3.9 Chloride 102 Carbon Dioxide 24 Anion Gap 9.0 BUN 27 H Creatinine 1.1 Estimated GFR (MDRD) 67 L Glucose 209 H Calcium 8.8 Total Bilirubin 0.7 AST 22 ALT 17 Alkaline Phosphatase 98 Troponin I < 0.04 Total Protein 6.7 Albumin 3.9 Globulin 2.8 Albumin/Globulin Ratio 1.4 Lipase 41 04/16/18 01:10 WBC RBC Hgb Hct MCV MCH MCHC RDW Plt Count MPV Neut # (Auto) Lymph # (Auto) Saline # (Auto) Eos # (Auto) Baso # (Auto) Absolute Nucleated RBC Nucleated RBC % Sodium Potassium Chloride Carbon Dioxide Anion Gap BUN Creatinine Estimated GFR (MDRD) Glucose Calcium Total Bilirubin AST ALT Alkaline Phosphatase Troponin I < 0.04 Total Protein Albumin Globulin Albumin/Globulin Ratio Lipase - Rads (name of study) Chest Film Radiology: Final report received (WNL) PD MEDICAL DECISION MAKING - ED course Complexity details: reviewed results, re-evaluated patient, considered differential, d/w patient, d/w family ED course: 67-year-old male with history of Parkinson's disease presents with left-sided chest pain and mild headache. EKG, chest x-ray, labs including serial troponins are unremarkable. Patient's headache was gradual in onset not worst of life with no clinical indication of subarachnoid hemorrhage or meningitis. No evidence of dissection on chest x-ray. No shortness of breath with no clinical indication of pulmonary embolism. Departure - Departure Disposition: 01 Home, Self Care Clinical Impression: Elevated blood pressure reading Chest pain Qualifiers: Chest pain type: unspecified Qualified Code(s): R07.9 - Chest pain, unspecified Headache Qualifiers: Headache type: unspecified Headache chronicity pattern: acute headache Intractability: not intractable Qualified Code(s): R51 - Headache Instructions: ED Chest Pain Atypical Unkn Cause, ED Headache Tension, Hypertension Dc Follow-Up: Hong Briseno MD [Primary Care Provider] -
[2018-04-16 02:54] VITALS: BP 169/103
--- NOTE | 2018-04-16 11:53 | XRAY Report ---
Reason: CHEST PAIN Procedure Date: 04/15/2018 Accession Number: [id number] / [id number] Procedure: XR - Chest 2 View X-Ray CPT Code: 96958 FULL RESULT: EXAM: CHEST RADIOGRAPHY EXAM DATE: 04/15/2018 11:09 PM. CLINICAL HISTORY: Chest pain. COMPARISON: None. TECHNIQUE: 2 views. FINDINGS: Lungs/Pleura: No alveolar consolidation or pleural effusion seen. No pneumothorax. Mediastinum: Heart and mediastinal contours are unremarkable. Other: None. IMPRESSION: 1. No acute abnormality seen in the chest. RADIA
== END 2018-04-16 03:05 | disposition home or self-care (01) ==
LOC: ED 22:15
DX: I10 Essential (primary) hypertension (principal); R07.9 Chest pain, unspecified; R51 Headache
CPT/HCPCS: 36415; 71046; 80053; 83690; 84484; 85025; 93005; 99283; A9270

== ENCOUNTER 2019-01-25 04:14 | Outpatient (CLI) | payer OTHER | END 2019-01-25 04:15 | disposition critical access hospital (66) | LOC: EMS 04:14 | PROVIDERS: ATTEND Surgery | DX: R07.9 Chest pain, unspecified (principal) | CPT/HCPCS: A0425; A0427 ==

== ENCOUNTER 2019-01-25 04:51 | Emergency (ER) | payer MEDICARE, OTHER ==
--- NOTE | 2019-01-25 05:09 | ED Physician Documentation ---
PD HPI CHEST PAIN - Stated complaint Stated Complaint: RAPID HR/CP - History obtained from History obtained from: Patient, EMS - History of Present Illness Timing - onset: Enter time (22:00), Today Timing - onset during: Rest Timing - details: Abrupt onset Pain level max: 6 Pain level now: 3 Quality: Pressure Location: Substernal Radiation: Other (radiates across anterior chest) Improved by: Rest, Nitro, Other medication (morphine) Worsened by: Exertion Associated symptoms: Shortness of air Recently seen: Clinic, Emergency Dept - Additional information Additional information: BIBA for palpitations and chest pressure. Patient was in bed, awake and getting ready to go to sleep at 10 PM when he had rapid and irregular palpitations associated with anterior chest pressure. He noted symptoms were worse with getting up and ambulating, and were associated with dyspnea. EMS arrived to find patient in CHRISTIANE 150s pulse, given 25mg IV cardizem with significant improvement in rate (90s-100s). Also given 81mg ASA x 4, SLNTG x 4, and 3mg IV morphine; these measures improved, but did not resolve, the chest pressure. Patient had similar symptoms 1.5 weeks ago when he was in [place]; he went to [facility] emergency department at that time and was diagnosed as CHRISTIANE (new onset atrial fibrillation). Patient says inpatient stay was recommended, but he preferred to avoid this and thus was kept over night in ED. Patient says he was started on predaxa at that time as well as metoprolol (both new medications for him) and also given rx for lovenox to be taken for 2-3 days. He followed up with his PMD the following Sunday (5 days ago), was started on metformin for elevated blood sugar and high A1C and was scheduled for cardiac angiogram (this is scheduled for next Sunday, which is in 2 days). Review of Systems Constitutional: reports: Reviewed and negative Eyes: reports: Reviewed and negative Ears: reports: Reviewed and negative Nose: reports: Reviewed and negative Throat: reports: Reviewed and negative Cardiac: reports: Chest pain / pressure, Palpitations. denies: Pedal edema, Calf pain Respiratory: reports: Dyspnea. denies: Cough GI: reports: Reviewed and negative : denies: Dysuria, Frequency Skin: reports: Reviewed and negative Musculoskeletal: reports: Reviewed and negative Neurologic: reports: Reviewed and negative PD PAST MEDICAL HISTORY - Past Medical History Cardiovascular: Atrial fibrillation Neuro: Parkinson's Endocrine/Autoimmune: Type 2 diabetes - Present Medications Home Medications: Ambulatory Orders Medication Instructions Recorded Confirmed Lisinopril [Zestril] 10 mg PO DAILY 02/25/13 04/16/18 Carbidopa/Levodopa 1 tab PO QID 02/01/18 04/16/18 [Carbidopa-Levodopa 25-100 Tab] HYDROmorphone [Dilaudid] 2 mg PO Q4H #45 tablet 02/01/18 04/16/18 Prednisone 10 mg PO DAILY #1 tab.ds.pk 02/01/18 04/16/18 - Allergies Allergies/Adverse Reactions: Allergies Allergy/AdvReac Type Severity Reaction Status Date / Time No Known Drug Allergies Allergy Verified 01/25/19 05:03 - Living Situation Living Situation: reports: With family Living Arrangement: reports: At home - Social History Does the pt smoke?: No PD ED PE NORMAL - Vitals Vital signs reviewed: Yes - General General: Alert and oriented X 3, No acute distress, Well developed/nourished - HEENT HEENT: Moist mucous membranes - Neck Neck: Supple, no meningeal sign - Respiratory Respiratory: No respiratory distress, Clear bilaterally - Abdomen Abdomen: Soft, Non tender, Non distended - Derm Derm: Normal color, Warm and dry - Extremities Extremities: No edema - Neuro Neuro: Alert and oriented X 3 PD ED PE EXPANDED - Cardiac Cardiac: Tachy, Irregularly irregular Results - Vitals Vitals: Oxygen O2 Source [] Room air O2 Source Room air Oxygen Flow Rate 2 - EKG (time done) No standard instances Rate: Rate (enter#) (123) Rhythm: Atrial fibrillation [place]: Normal Ischemia: Normal ST segments #2 Rate: Rate (enter#) (59) Rhythm: NSR [place]: Normal Intervals: Normal [place] QRS: Normal Ischemia: Q waves (isolated QIII), T wave inversion (isolated to III) - Labs Labs: Laboratory Tests 01/25/19 01/25/19 01/25/19 05:46 05:46 05:46 WBC 8.1 RBC 4.12 L Hgb 13.3 L Hct 39.5 L MCV 95.9 H MCH 32.3 H MCHC 33.7 RDW 13.0 Plt Count 250 MPV 9.7 Neut # (Auto) 5.1 Lymph # (Auto) 2.1 [place] # (Auto) 0.8 Eos # (Auto) 0.1 Baso # (Auto) 0.0 Absolute Nucleated RBC 0.00 Nucleated RBC % 0.0 Sodium 140 Potassium 4.1 Chloride 105 Carbon Dioxide 26 Anion Gap 9.0 BUN 33 H Creatinine 1.3 H Estimated GFR (MDRD) 55 L Glucose 198 H Calcium 9.0 Total Bilirubin 0.4 AST 22 ALT 21 Alkaline Phosphatase 138 H Troponin I High Sens 37.3 H* Total Protein 6.6 L Albumin 3.9 Globulin 2.7 Albumin/Globulin Ratio 1.4 Lipase 45 01/25/19 07:54 WBC RBC Hgb Hct MCV MCH MCHC RDW Plt Count MPV Neut # (Auto) Lymph # (Auto) [place] # (Auto) Eos # (Auto) Baso # (Auto) Absolute Nucleated RBC Nucleated RBC % Sodium Potassium Chloride Carbon Dioxide Anion Gap BUN Creatinine Estimated GFR (MDRD) Glucose Calcium Total Bilirubin AST ALT Alkaline Phosphatase Troponin I High Sens 38.4 H* Total Protein Albumin Globulin Albumin/Globulin Ratio Lipase - Rads (name of study) chest xray Radiology: Prelim report reviewed, See rad report PD MEDICAL DECISION MAKING - ED course Complexity details: reviewed old records, reviewed results, re-evaluated patient, considered differential, d/w patient ED course: ongoing chest discomfort during ED stay albeit mild. during ED stay he converted to NSR but chest pressure persisted. The following hospitals were contacted for consideration for transfer but did not appropriate beds available (cardiac telemetry): [facility], [facility], [facility], [facility], [facility]. [facility] has appropriate bed available and Dr. Fernandez (hospitalist) graciously accepts patient for transfer to Departure - Departure Disposition: 02 Transfer Acute Care Hosp Clinical Impression: Chest pain Qualifiers: Chest pain type: unspecified Qualified Code(s): R07.9 - Chest pain, unspecified Condition: Stable Discharge Date/Time: 01/25/19 10:04
[2019-01-25] MEDS ORDERED: NITROGLYCERIN 2% PASTE TOP STA (05:14)
--- NOTE | 2019-01-25 05:39 | XRAY Report ---
Reason: chest pain Procedure Date: 01/25/2019 Accession Number: [id number] / [id number] Procedure: XR - Chest 1 View X-Ray CPT Code: 93441 Final Report FULL RESULT: EXAM: CHEST RADIOGRAPHY EXAM DATE: 01/25/2019 05:11 AM. CLINICAL HISTORY: Chest pain. COMPARISON: 04/15/2018 11:08 PM. TECHNIQUE: 1 view. FINDINGS: Lungs/Pleura: No focal opacities evident. No pleural effusion. No pneumothorax. Mediastinum: Within exam limitations, the cardiomediastinal contour is normal. Other: None. IMPRESSION: Normal single view chest. RADIA
[2019-01-25 05:55] LABS: BASOPHILS % (AUTO) 0.5 %; EOSINOPHILS # (AUTO) 0.1 10^3/uL (0.0-0.7); EOSINOPHILS % (AUTO) 1.1 %; HGB - HEMOGLOBIN 13.3 g/dL (14.0-18.0); LYMPHOCYTES # (AUTO) 2.1 10^3/uL (1.5-3.5); LYMPHOCYTES % (AUTO) 25.9 %; MEAN CORPUSCULAR HEMOGLOBIN 32.3 pg (27.0-31.0); MEAN CORPUSCULAR HGB CONC 33.7 g/dL (32.0-36.0); MEAN CORPUSCULAR VOLUME 95.9 fL (80.0-94.0); MEAN PLATELET VOLUME 9.7 fL (7.4-11.4); MONOCYTES # (AUTO) 0.8 10^3/uL (0.0-1.0); MONOCYTES % (AUTO) 9.3 %; NEUTROPHILS # (AUTO) 5.1 10^3/uL (1.5-6.6); NEUTROPHILS % (AUTO) 62.8 %; PLT - PLATELET COUNT 250 10^3/uL (130-450); RED BLOOD COUNT 4.12 10^6/uL (4.70-6.10); WHITE BLOOD COUNT 8.1 x10^3/uL (4.8-10.8)
[2019-01-25 06:13] LABS: ALBUMIN 3.9 g/dL (3.2-5.5); ALBUMIN/GLOBULIN RATIO 1.4 (1.0-2.2); BILIRUBIN,TOTAL 0.4 mg/dL (0.2-1.0); CREATININE 1.3 mg/dL (0.6-1.2); TOTAL PROTEIN 6.6 g/dL (6.7-8.2)
[2019-01-25 07:31] VITALS: BP 116/85
== END 2019-01-25 10:04 | disposition short-term general hospital (02) ==
LOC: EDUNIT# → ED 04:51
DX: R07.9 Chest pain, unspecified (principal); R00.0 Tachycardia, unspecified; E11.9 Type 2 diabetes mellitus without complications
CPT/HCPCS: 36415; 71045; 80053; 83690; 84484; 85025; 93005; 99285

== ENCOUNTER 2019-10-16 13:24 | Outpatient (CLI) | payer OTHER ==
[2019-10-16 20:25] LABS: BASOPHILS % (AUTO) 0.7 %; EOSINOPHILS # (AUTO) 0.1 10^3/uL (0.0-0.7); EOSINOPHILS % (AUTO) 1.6 %; HGB - HEMOGLOBIN 14.9 g/dL (14.0-18.0); LYMPHOCYTES # (AUTO) 1.6 10^3/uL (1.5-3.5); MEAN CORPUSCULAR HEMOGLOBIN 32.5 pg (27.0-31.0); MEAN CORPUSCULAR HGB CONC 32.6 g/dL (32.0-36.0); MEAN CORPUSCULAR VOLUME 99.8 fL (80.0-94.0); MEAN PLATELET VOLUME 10.3 fL (7.4-11.4); MONOCYTES # (AUTO) 0.4 10^3/uL (0.0-1.0); MONOCYTES % (AUTO) 6.8 %; NEUTROPHILS # (AUTO) 3.5 10^3/uL (1.5-6.6); NEUTROPHILS % (AUTO) 61.7 %; PLT - PLATELET COUNT 260 10^3/uL (130-450); RED BLOOD COUNT 4.58 10^6/uL (4.70-6.10); RED CELL DISTRIBUTION WIDTH 13.6 % (12.0-15.0); WHITE BLOOD COUNT 5.6 x10^3/uL (4.8-10.8)
[2019-10-16 20:46] LABS: ALBUMIN 4.2 g/dL (3.2-5.5); ALBUMIN/GLOBULIN RATIO 1.6 (1.0-2.2); ALKALINE PHOSPHATASE 112 IU/L (42-121); ALT ALANINE AMINOTRANSFERASE < 10 IU/L (10-60); AST ASPARTATE AMINOTRANSFERASE 21 IU/L (10-42); BILIRUBIN,TOTAL 0.6 mg/dL (0.2-1.0); BUN - BLOOD UREA NITROGEN 22 mg/dL (6-20); CALCIUM 8.8 mg/dL (8.5-10.3); CARBON DIOXIDE - CO2 25 mmol/L (21-32); CHLORIDE 105 mmol/L (101-111); CHOLESTEROL 172 mg/dL; CREATININE 1.1 mg/dL (0.6-1.2); GLUCOSE 164 mg/dL (70-100); HDL CHOLESTEROL 43 mg/dL; LDL CHOLESTEROL,CALCULATED 101 mg/dL; LDL/HDL RATIO 2.3 (<3.6); SODIUM 138 mmol/L (135-145); TOTAL PROTEIN 6.9 g/dL (6.7-8.2); VLDL CHOLESTEROL 28 mg/dL
== END 2019-10-16 13:25 | disposition home or self-care (01) ==
LOC: LAB.S 13:24
PROVIDERS: ATTEND Registered Nurse
DX: I48.21 Permanent atrial fibrillation (principal); R73.9 Hyperglycemia, unspecified; F41.8 Other specified anxiety disorders; I10 Essential (primary) hypertension; G20 Parkinson's disease
CPT/HCPCS: 36415; 80053; 80061; 83721; 84443; 85025

== ENCOUNTER 2019-11-06 11:22 | Outpatient (CLI) | payer OTHER ==
[2019-11-06 19:52] LABS: HEMOGLOBIN A1c% 7.3 % (4.27-6.07)
== END 2019-11-06 11:23 | disposition home or self-care (01) ==
LOC: LAB.S 11:22
PROVIDERS: ATTEND Registered Nurse
DX: R73.9 Hyperglycemia, unspecified (principal)
CPT/HCPCS: 36415; 83036

== ENCOUNTER 2020-01-12 08:01 | Outpatient (CLI) | payer OTHER ==
[2020-01-12 15:36] LABS: BASOPHILS # (AUTO) 0.1 10^3/uL (0.0-0.1); BASOPHILS % (AUTO) 0.7 %; EOSINOPHILS # (AUTO) 0.1 10^3/uL (0.0-0.7); EOSINOPHILS % (AUTO) 1.7 %; HGB - HEMOGLOBIN 14.8 g/dL (14.0-18.0); LYMPHOCYTES # (AUTO) 2.3 10^3/uL (1.5-3.5); LYMPHOCYTES % (AUTO) 33.3 %; MEAN CORPUSCULAR HEMOGLOBIN 33.7 pg (27.0-31.0); MEAN CORPUSCULAR HGB CONC 34.4 g/dL (32.0-36.0); MEAN CORPUSCULAR VOLUME 97.9 fL (80.0-94.0); MEAN PLATELET VOLUME 9.9 fL (7.4-11.4); MONOCYTES # (AUTO) 0.6 10^3/uL (0.0-1.0); MONOCYTES % (AUTO) 8.5 %; NEUTROPHILS # (AUTO) 3.9 10^3/uL (1.5-6.6); NEUTROPHILS % (AUTO) 55.4 %; PLT - PLATELET COUNT 262 10^3/uL (130-450); RED BLOOD COUNT 4.39 10^6/uL (4.70-6.10); RED CELL DISTRIBUTION WIDTH 13.3 % (12.0-15.0)
[2020-01-12 15:53] LABS: ALBUMIN 4.4 g/dL (3.2-5.5); ALBUMIN/GLOBULIN RATIO 1.6 (1.0-2.2); ALKALINE PHOSPHATASE 102 IU/L (42-121); ALT ALANINE AMINOTRANSFERASE < 10 IU/L (10-60); AST ASPARTATE AMINOTRANSFERASE 17 IU/L (10-42); BILIRUBIN,TOTAL 0.8 mg/dL (0.2-1.0); BUN - BLOOD UREA NITROGEN 29 mg/dL (6-20); CALCIUM 9.2 mg/dL (8.5-10.3); CARBON DIOXIDE - CO2 24 mmol/L (21-32); CHLORIDE 101 mmol/L (101-111); CHOL/HDL RATIO 4.2 (<5.0); CHOLESTEROL 173 mg/dL; CREATININE 1.1 mg/dL (0.6-1.2); GLUCOSE 122 mg/dL (70-100); HDL CHOLESTEROL 41 mg/dL; SODIUM 136 mmol/L (135-145); TOTAL PROTEIN 7.1 g/dL (6.7-8.2)
[2020-01-12 17:13] LABS: LDL CHOLESTEROL,CALCULATED 106 mg/dL; LDL/HDL RATIO 2.6 (<3.6); VLDL CHOLESTEROL 26 mg/dL
[2020-01-12 20:07] LABS: HEMOGLOBIN A1c% 7.1 % (4.27-6.07)
== END 2020-01-12 08:02 | disposition home or self-care (01) ==
LOC: LAB.S 08:01
PROVIDERS: ATTEND Internal Medicine Cardiovascular Disease
DX: R73.09 Other abnormal glucose (principal); I10 Essential (primary) hypertension; I48.91 Unspecified atrial fibrillation; G20 Parkinson's disease
CPT/HCPCS: 36415; 80053; 80061; 83036; 83721; 84443; 85025

== ENCOUNTER 2020-02-23 11:35 | Outpatient (CLI) | payer OTHER | END 2020-02-23 11:36 | disposition home or self-care (01) | LOC: LAB.S 11:35 | PROVIDERS: ATTEND Registered Nurse | DX: R73.03 Prediabetes (principal) ==

== ENCOUNTER 2020-02-24 10:23 | Outpatient (CLI) | payer MEDICARE ==
[2020-02-24 15:34] LABS: CALCIUM 9.1 mg/dL (8.5-10.3); CREATININE 1.2 mg/dL (0.6-1.2)
[2020-02-24 15:38] LABS: CREATININE,URINE 149.9 mg/dL; MICROALBUM/CREATININE RATIO,UR 202.8 ug/mg (<30.0); MICROALBUMIN,URINE 30.4 mg/dL (0-300.0)
[2020-02-24 20:38] LABS: HEMOGLOBIN A1c% 7.2 % (4.27-6.07)
== END 2020-02-24 10:24 | disposition home or self-care (01) ==
LOC: LAB.S 10:23
PROVIDERS: ATTEND Registered Nurse
DX: R73.03 Prediabetes (principal); Z12.11 Encounter for screening for malignant neoplasm of colon
CPT/HCPCS: 36415; 80048; 82043; 82570; 83036

== ENCOUNTER 2020-04-01 16:11 | Emergency (ER) | payer MEDICARE ==
[2020-04-01 16:51] LABS: BASOPHILS # (AUTO) 0.1 10^3/uL (0.0-0.1); BASOPHILS % (AUTO) 0.7 %; EOSINOPHILS # (AUTO) 0.1 10^3/uL (0.0-0.7); EOSINOPHILS % (AUTO) 0.6 %; HGB - HEMOGLOBIN 14.8 g/dL (14.0-18.0); LYMPHOCYTES # (AUTO) 1.7 10^3/uL (1.5-3.5); LYMPHOCYTES % (AUTO) 20.6 %; MEAN CORPUSCULAR HEMOGLOBIN 33.9 pg (27.0-31.0); MEAN CORPUSCULAR HGB CONC 34.2 g/dL (32.0-36.0); MEAN CORPUSCULAR VOLUME 99.3 fL (80.0-94.0); MEAN PLATELET VOLUME 8.9 fL (7.4-11.4); MONOCYTES # (AUTO) 0.6 10^3/uL (0.0-1.0); MONOCYTES % (AUTO) 7.2 %; NEUTROPHILS # (AUTO) 5.7 10^3/uL (1.5-6.6); NEUTROPHILS % (AUTO) 70.7 %; PLT - PLATELET COUNT 256 10^3/uL (130-450); RED BLOOD COUNT 4.36 10^6/uL (4.70-6.10); RED CELL DISTRIBUTION WIDTH 12.5 % (12.0-15.0); WHITE BLOOD COUNT 8.1 x10^3/uL (4.8-10.8)
--- NOTE | 2020-04-01 17:03 | XRAY Report ---
PROCEDURE: Chest 1 View X-Ray INDICATIONS: Chest Pain TECHNIQUE: One view of the chest was acquired. COMPARISON: Chest radiographs 01/25/2019 FINDINGS: Surgical changes and devices: None. Lungs and pleura: No pleural effusions or pneumothorax. Lungs are clear. Mediastinum: Mediastinal contours appear normal. Heart size is normal. Bones and chest wall: No suspicious bony lesions. Overlying soft tissues appear unremarkable. IMPRESSION: No acute cardiopulmonary abnormality. Reviewed by: Timothy Hancock MD on 04/01/2020 5:01 PM [facility] Approved by: Timothy Hancock MD on 04/01/2020 5:01 PM [facility] Station ID: [id number]
[2020-04-01 17:05] LABS: ALBUMIN 4.4 g/dL (3.2-5.5); ALBUMIN/GLOBULIN RATIO 1.6 (1.0-2.2); BILIRUBIN,TOTAL 0.7 mg/dL (0.2-1.0); CALCIUM 9.2 mg/dL (8.5-10.3); CREATININE 1.2 mg/dL (0.6-1.2); TOTAL PROTEIN 7.2 g/dL (6.7-8.2)
[2020-04-01] MEDS ORDERED: SODIUM CHLORIDE 0.9% 1,000 ML IV STA (17:19)
--- NOTE | 2020-04-01 18:01 | ED Physician Documentation ---
History of Present Illness - Stated complaint Stated Complaint: DIABETIC/DIZZY - Chief complaint Chief Complaint: General - Additonal information Additional information: 69-year-old diabetic male presents to the emergency department with number of concerns. He has felt weak and dizzy over the last week. He also reports that he has had a bitemporal headache for about 1 month. He feels that he had a near syncopal event yesterday evening. He is also concerned that his blood sugars are too high. His blood sugar this morning at home was 230 mg/dL. He reports that they typically run 100-1 10. He denies chest pain, shortness of breath, abdominal pain black or bloody stools. He does endorse nausea with dry heaves. Patient does have a history of diabetes mellitus, Hypertension, Parkinson's as well as previously known atrial fibrillation. Patient is unable to tell me the names of the medications that he takes. He thinks he may be on a blood thinner but is unsure. Review of Systems Constitutional: denies: Fever, Chills Eyes: denies: Loss of vision, Decreased vision, Photophobia Ears: reports: Reviewed and negative Nose: reports: Reviewed and negative Throat: reports: Reviewed and negative Cardiac: denies: Chest pain / pressure, Palpitations, Pedal edema, Calf pain Respiratory: denies: Dyspnea, Cough, Hemoptysis, Wheezing GI: reports: Nausea. denies: Abdominal Pain, Vomiting, Constipation, Hematemesis, Bloody / black stool : reports: Unable to Void (Difficulty initiating void thinks he has an enlarged prostate.). denies: Dysuria, Hesitancy Skin: denies: Rash, Lesions, Abrasion (s) Musculoskeletal: denies: Neck pain, Extremity pain, Joint pain Neurologic: reports: Near syncope. denies: Generalized weakness, Focal weakness, Syncope, Seizure, Confused, Altered mental status, Headache, Head injury PD PAST MEDICAL HISTORY - Past Medical History Past Medical History: Yes Cardiovascular: Atrial fibrillation Respiratory: None Neuro: Parkinson's Endocrine/Autoimmune: Type 2 diabetes GI: GERD : None HEENT: None Psych: Anxiety Musculoskeletal: Chronic back pain Derm: None - Past Surgical History Past Surgical History: Yes - Present Medications Home Medications: Ambulatory Orders Medication Instructions Recorded Confirmed lisinopriL [Zestril] 10 mg PO DAILY 02/25/13 04/16/18 Carbidopa/Levodopa 1 tab PO QID 02/01/18 04/16/18 [Carbidopa-Levodopa 25-100 Tab] HYDROmorphone [Dilaudid] 2 mg PO Q4H #45 tablet 02/01/18 04/16/18 Prednisone 10 mg PO DAILY #1 tab.ds.pk 02/01/18 04/16/18 - Allergies Allergies/Adverse Reactions: Allergies Allergy/AdvReac Type Severity Reaction Status Date / Time No Known Drug Allergies Allergy Verified 04/01/20 16:35 - Social History Does the pt smoke?: No Smoking Status: Never smoker Does the pt drink ETOH?: No Does the pt have substance abuse?: No - Immunizations Immunizations are current?: Yes - POLST Patient has POLST: No PD ED PE EXPANDED - General General: Alert, No acute distress. No: Well developed/nourished - HEENT HEENT: Atraumatic, PERRL, EOMI, Dry mucous membranes - Neck Neck: Supple w/out meningeal sx. No: Adenopathy - Cardiac Cardiac: Regular Rate, Regular Rhythm, Murmur Present, Radial strong equal, Cap refill < 2 sec - Respiratory Respiratory: Clear to ausultation jimbo. No: Distress, Labored - Abdomen Abdomen: Normal Bowel sounds, Distended. No: Tender to palpation, Rebound, Guarding - Derm Derm: Normal color, Warm and dry. No: Rash, Petecchiae, Purpura - Extremities Extremities: Normal. No: Deformity, Tenderness, Pedal edema bilateral, Right calf TTP/cord, Left calf TTP/cord - Neuro Neuro: Alert and Oriented X 3, CNII-XII intact, Normal gait, Normal finger nose, Normal speech - GCS Eye Opening: Spontaneous Motor: Obeys Commands Verbal: Oriented Total: 15 Results - Vitals Vitals: Vital Signs - 24 hr 04/01/20 04/01/20 04/01/20 16:30 16:36 19:03 Temperature 36.2 C L Heart Rate 80 73 98 Respiratory 16 16 18 Rate Blood Pressure 139/100 H 137/108 H 123/68 O2 Saturation 97 99 100 Oxygen O2 Source [] Room air O2 Source Room air - EKG (time done) 1640 Rate: Rate (enter#) (71) Rhythm: NSR [place]: Normal Intervals: Normal MT QRS: Normal Ischemia: Normal ST segments Compare to prior EKG: Changed from prior EKG Computer interpretation: Agree with computer (Previous EKG showed atrial fibrillation.) - Labs Labs: Laboratory Tests 04/01/20 04/01/20 04/01/20 16:46 16:46 16:46 WBC 8.1 RBC 4.36 L Hgb 14.8 Hct 43.3 MCV 99.3 H MCH 33.9 H MCHC 34.2 RDW 12.5 Plt Count 256 MPV 8.9 Neut # (Auto) 5.7 Lymph # (Auto) 1.7 [place] # (Auto) 0.6 Eos # (Auto) 0.1 Baso # (Auto) 0.1 Absolute Nucleated RBC 0.00 Nucleated RBC % 0.0 Sodium 133 L Potassium 4.2 Chloride 99 L Carbon Dioxide 22 Anion Gap 12.0 BUN 29 H Creatinine 1.2 Estimated GFR (MDRD) 60 L Glucose 207 H Calcium 9.2 Total Bilirubin 0.7 AST 27 ALT 17 Alkaline Phosphatase 108 Troponin I High Sens 36.7 H* Total Protein 7.2 Albumin 4.4 Globulin 2.8 Albumin/Globulin Ratio 1.6 Lipase 41 Urine Color Urine Clarity Urine pH Ur Specific [place] Urine Protein Urine Glucose (UA) Urine Ketones Urine Occult Blood Urine Nitrite Urine Bilirubin Urine Urobilinogen Ur Leukocyte Esterase Ur Microscopic Review Urine Culture Comments 04/01/20 04/01/20 18:21 18:40 WBC RBC Hgb Hct MCV MCH MCHC RDW Plt Count MPV Neut # (Auto) Lymph # (Auto) [place] # (Auto) Eos # (Auto) Baso # (Auto) Absolute Nucleated RBC Nucleated RBC % Sodium Potassium Chloride Carbon Dioxide Anion Gap BUN Creatinine Estimated GFR (MDRD) Glucose Calcium Total Bilirubin AST ALT Alkaline Phosphatase Troponin I High Sens 30.5 H* Total Protein Albumin Globulin Albumin/Globulin Ratio Lipase Urine Color YELLOW Urine Clarity CLEAR Urine pH 6.5 Ur Specific [place] 1.020 Urine Protein NEGATIVE Urine Glucose (UA) 100 H Urine Ketones NEGATIVE Urine Occult Blood NEGATIVE Urine Nitrite NEGATIVE Urine Bilirubin NEGATIVE Urine Urobilinogen 0.2 (NORMAL) Ur Leukocyte Esterase NEGATIVE Ur Microscopic Review NOT INDICATED Urine Culture Comments NOT INDICATED - Rads (name of study) CXR Radiology: Final report received (No acute cardiopulmonary pathology.) CT head Radiology: Final report received PD MEDICAL DECISION MAKING - ED course Complexity details: reviewed old records, reviewed results, re-evaluated patient, considered differential, d/w patient, d/w family ED course: 69-year-old male has a history of diabetes as well as atrial fibrillation presents the emergency department for evaluation of weakness, dizziness as well as concerns of elevated blood sugar. He is on Metformin twice daily. His blood glucose here in the emergency department was 207 Milligrams per deciliter. Screening labs revealed no leukocytosis. He did appear somewhat dehydrated with an elevated BUN however his creatinine was normal. I did give him 1 L of IV fluids and he felt markedly improved. He was no longer dizzy with ambulation. Urine and chest x-ray showed no signs of infection. He does have a history of atrial fibrillation and reports that he is on a novel anticoagulant though he does not know the name of it. Screening EKG today here is a sinus rhythm without ischemic changes. Initial high-sensitivity troponin was 37. A 2-hour delta troponin was repeated and it had decreased to 30. The patient denies any chest pain or shortness of breath. In review of his chart records it does appear that when he presents to the emergency department he typically does have troponins in the 30s. I discussed this case with Dr. duong nocturnal hospitalist. At this [facility], pt does Not need to be admitted to the hospital but should have an outpatient echo cardiogram and stress test. Findings were discussed with the patient and his at the bedside. He will continue to follow-up with his primary care doctor and net application architect through [facility]. He is to return to the emergency department if he develops chest pain, has syncopal events uncontrolled abdominal pain or vomiting. Departure - Departure Disposition: 01 Home, Self Care Clinical Impression: Elevated troponin Diabetes Qualifiers: Diabetes mellitus type: type 2 Diabetes mellitus terminal clerk insulin use: without senior living use Diabetes mellitus complication status: without complication Qualified Code(s): E11.9 - Type 2 diabetes mellitus without complications Condition: Stable Record reviewed to determine appropriate education?: Yes Comments: Albaro you were seen in the emergency department for evaluation of your blood sugars and feelings of fatigue and being unwell. Your EKG today was sinus and did not show signs of having a heart attack. We did check a lab called a troponin. Your troponins always seem to run in the low 30s which appears to be your baseline. It is important that you discuss this emergency department visit with your net application architect at [facility]. You should have an outpatient echocardiogram as well as a stress test. The CT of your head was normal today. It does appear that you are a little bit dehydrated. This explains why the IV fluids improved your dizziness. If at any point you develop suddenly severe chest pain, have shortness of air, uncontrolled abdominal pain or vomiting please return immediately to the emergency department.
--- NOTE | 2020-04-01 18:15 | CT Report ---
PROCEDURE: HEAD WO INDICATIONS: Anticoagulated; headache TECHNIQUE: Noncontrast 4.5 mm thick angled axial sections acquired from the foramen magnum to the vertex. For r adiation dose reduction, the following was used: automated exposure control, adjustment of mA and/or kV according to patient size. COMPARISON: None. FINDINGS: Image quality: Excellent. CSF spaces: Basal cisterns are patent. No extra-axial fluid collections. Ventricles are normal in size and shape. Brain: No midline shift. No intracranial masses or hemorrhage. Chi-white matter interface is norm al. Mild global cerebral volume loss and chronic microvascular ischemic change. Skull and face: Calvarium and visualized facial bones are intact, without suspicious lesions. Sinuses: Visualized sinuses and mastoids are clear. IMPRESSION: No acute intracranial finding. Reviewed by: James Moore MD on 04/01/2020 5:14 PM [facility] Approved by: James Moore MD on 04/01/2020 5:14 PM [facility] Station ID: [id number]
[2020-04-01 18:48] LABS: BILIRUBIN,URINE NEGATIVE (NEGATIVE); GLUCOSE, URINE (UA) 100 mg/dL (NEGATIVE); KETONES,URINE (UA) NEGATIVE (NEGATIVE); LEUKOCYTE ESTERASE, URINE NEGATIVE (NEGATIVE); NITRITE,URINE NEGATIVE (NEGATIVE); OCCULT BLOOD,URINE NEGATIVE (NEGATIVE); PH,URINE 6.5 PH (5.0-7.5); PROTEIN,URINE NEGATIVE (NEGATIVE); UROBILINOGEN,URINE 0.2 (NORMAL) E.U./dL (NORMAL)
[2020-04-01 19:03] VITALS: BP 123/68
[2020-04-01 19:23] LABS: CLARITY,URINE CLEAR (CLEAR)
== END 2020-04-01 20:03 | disposition home or self-care (01) ==
LOC: ED 16:11
DX: E11.9 Type 2 diabetes mellitus without complications (principal); Z79.84 Long term (current) use of oral hypoglycemic drugs; R77.8 Other specified abnormalities of plasma proteins; I10 Essential (primary) hypertension; G20 Parkinson's disease; I48.91 Unspecified atrial fibrillation; Z79.01 Long term (current) use of anticoagulants
CPT/HCPCS: 80053; 81001; 81003; 83690; 84484; 85025; 87086; 93005; 96360; 99284